=== PATIENT | male | born 1950 | race Caucasian/White ===

== ENCOUNTER → 2017-10-11 | Outpatient (CLI) | payer MEDICARE ==
[~2017-10-11] VITALS: Ht 180.3 cm; Wt 165.0 kg
[~2017-10-11] MED LIST: *RESP: ALBUTEROL 2.5 MG/3 ML NEB (PRN) PERIprocedural Use ONLY NEB ONE; AMLO10TA2 PO; ATOR40TA16 PO; CHLORHEXIDINE GLUCONATE 2 % 1 PACK (2 CLOTHS) TOPICAL PRN; CHOL1CAP34 PO; DEXTROSE 5% IN WATE 1000ML INJ 1,000 ML IV SCH; DO NOT ADM ANY ANTICOAGULANT DRUGS PRN; ECASA81 PO; FINA5TAB2 PO; HYDR25TA5 PO; INDO50CA PO; LACTATED RINGER'S 1000 ML IV PRN; LIDOCAINE HCL 1% PF 5 ML SYRINGE OTHER ONE; LISI-515 PO; METF1000 PO; METO25TA3 PO; METOPROLOL TARTRATE 25 MG TAB PO PRN; NIAC500T5 PO; PHENYLEPH/NS 1000 MCG/10 ML SYR IV ONE; PIOG30TA4 PO; POVIDONE IODINE 5% (ANTISEPSIS KIT) 4 APPLICATIONS EACH NARE PRN; PROPOFOL 200 MG/20 ML AMP IV ONE; SODIUM CHLORID 0.9% 500 ML IV PRN; SUCCINYLCHOLINE CHLORIDE 200 MG/10 ML VIAL IV ONE; SYNT112T PO; TAMS0.4C4 PO; ePHEDrine/NS 25 MG/5 ML SYRINGE IV ONE
--- NOTE | 2017-10-11 15:53 | MR ---
cc: Venkatesh Yang MD DATE: 10/11/2017 PREOPERATIVE DIAGNOSES: Past history of colon polyps and colon carcinoma. Past history of ascending colectomy. POSTOPERATIVE DIAGNOSIS: Normal colonoscopy. PROCEDURE: Total colonoscopy. ANESTHESIA: General endotracheal. SURGEON: Dr. Yang OPERATIVE FINDINGS: This patient had a previous right colectomy 15 years ago for colon carcinoma and polyps. For this reason, he has had followup colonoscopies. At colonoscopy, he was found to have no polyps or other mucosal lesions. The ileocolic anastomosis appeared normal. OPERATIVE TECHNIQUE: The patient was placed on the table in the supine position after general endotracheal anesthesia because of his morbid obesity. The colonoscope was introduced through the anal canal and taken through the rectum, sigmoid colon, descending colon, transverse colon to the ileocolic anastomosis. No polyps or other mucosal lesions were seen. The scope was eventually withdrawn. The prep was good. The patient tolerated the procedure well and left the operating room in good condition. Venkatesh Yang MD JTAMARA/TRISTAN , 03:43 PM , 03:52 PM
[2017-10-11 16:52] VITALS: BP 137/76; PULSE 85; RESP 20; TEMP 98.3; O2SAT 94
--- NOTE | 2017-10-13 08:14 | EKG ---
Date Performed: 10/11/2017 Time Performed: 14:47:20 PTAGE: 67 years EKG: Sinus rhythm INTRAVENTRICULAR CONDUCTION Disturbance that may be an atypical left bundle branch block ABNORMAL EC G PREVIOUS TRACING : 10/27/2002 11.15 Since previous tracing, the left bundle branch block patter n is new. DOCTOR: Behzad Jessica Interpretating Date/Time 10/13/2017 08:12:57
== END ==
LOC: HSDC 13:23
PROVIDERS: ATTEND Colon & Rectal Surgery
DX: Z85.038 Personal history of other malignant neoplasm of large intestine (principal); Z86.010 Personal history of colon polyps; I10 Essential (primary) hypertension; E11.9 Type 2 diabetes mellitus without complications; Z95.0 Presence of cardiac pacemaker; I25.2 Old myocardial infarction; G47.30 Sleep apnea, unspecified; Z01.810 Encounter for preprocedural cardiovascular examination
CPT/HCPCS: 00812; 45378; 93005; 94664; J0330; J2370; J7120; J7613